=== PATIENT | female | born 1980 | race Two or more races ===

== ENCOUNTER 2024-05-14 14:48 | Emergency (ER) | payer BC, SELFPAY ==
[2024-05-14 14:50] VITALS: BMI 33.5
[2024-05-14 14:56] VITALS: BP 155/99; PULSE 107; RESP 18; TEMP 36.8; O2SAT 97
--- NOTE | 2024-05-14 14:57 | PC.NURSE ---
Stroke alert called in triage for left facial droop, no other deficits, Dr. Marlow in od triage, assesed patient and cancelled stroke alert.
--- NOTE | 2024-05-14 15:05 | EDNOTE_ITS ---
ED General RME/HPI General Chief complaint: Neuro Symptoms/Deficit Stated complaint: LEFT FACIAL PARALYSIS, UNABLE TO BLINK LEFT EYE Time Seen by Provider: 05/14/24 15:03 Arrival date/time: 05/14/24 14:48 RME / HPI RME / HPI narrative: 43-year-old female 12 hours of left facial droop, inability to close her eyes completely, dry eyes, and facial tingling. She denies recent trauma or headache. She denies slurred speech or difficulty swallowing. She denies weakness or deficits in her arms and legs. She does note that the joints of her jaws underneath her ears frequently pop out . Related Data Previous Rx's ?Medication ?Instructions ?Recorded prednisone 50 mg tablet 50 mg PO QDAY 7 days #7 tabs 05/14/24 valacyclovir 500 mg tablet 1,000 mg (2 x 500 mg) PO TID 1 05/14/24 week #42 tabs Allergies Allergy/AdvReac Type Severity Reaction Status Date / Time NKA* Allergy Uncoded 05/14/24 14:51 Review of Systems Review of Systems Systems Reviewed: All systems reviewed, normal except as documented ED Exam Narrative Physical exam: GENERAL APPEARANCE: AxOx4, generally well-appearing, no acute distress. HEENT: NC, AT. MMM. EOMI, clear conjunctiva, oropharynx clear, no TMJ tenderness bilaterally NECK: Supple without lymphadenopathy. No stiffness or restricted ROM. HEART: Normal rate and regular rhythm, normal S1/S1, no m/r/g LUNGS: CTAB, moving air well. No crackles or wheezes are heard. ABDOMEN: Soft, nontender, nondistended with good bowel sounds heard. BACK: No midline C/T/L spine pain or deformity, No CVAT, no obvious deformity. EXTREMITIES: Without cyanosis, clubbing or edema. MUSCULOSKELETAL: FROM of all major joints, no chest tenderness NEUROLOGICAL: Grossly nonfocal. Alert and oriented, moving all 4 extremities. Left facial nerve weakness involving the forehead. Positive Saleh's phenomena on the left. Remainder of cranial nerves are intact. not formally tested but appear grossly intact. Observed to ambulate with normal gait. Skin: Warm and dry without any rash. Course Quality Measures none Vital Signs Vital signs: Vital Signs Temperature 98.3 F 05/14/24 14:56 Pulse Rate 107 H 05/14/24 14:56 Respiratory Rate 18 05/14/24 14:56 Blood Pressure 155/99 H 05/14/24 14:56 Pulse Oximetry (%) 97 05/14/24 14:56 Oxygen Delivery Method Room Air 05/14/24 14:56 SpO2 97% on room air, patient is not hypoxic MDM Patient data External records reviewed:: [facility] previous records Clinical information provided by:: patient Social determinants that could affect healthcare access:: none Patient has the following chronic illnesses:: None How is presenting disease/condition affected by chronic disease/condition?: no chronic disease Evaluation data The following diagnostics were reviewed and interpreted by me:: other (specify) (Not indicated) Lab and/or radiology exams considered but not ordered:: Not indicated Interpretation Summary: Not indicated Medications Medications considered but not ordered:: None Medication administrations:: None Consultations Consultation(s) initiated? (list below): No Diagnosis Differential Diagnosis ED Complaint MDM: Saleh's palsy, CVA, TIA, TMJ-itis Most likely diagnosis given after review of the tests above:: See below Admission Indicated Admission indicated?: not indicated Explain why admission is indicated or not indicated:: As per narrative Admission Request Was there a request for admission?: No Disposition Plan Disposition Plan: Discharge Discharge Attestation Discharge Attestation: The patient and all family members were given an opportunity to ask questions and understood the discharge instructions. Discharge instructions specifically effects, indications for sooner follow up or return to the emergency department, and the expected course of current diagnosis. Patient condition: Stable Medical Decision Making MDM Narrative MDM Narrative: Ms. Grady presents to the emergency department with left facial droop, positive Saleh's phenomena, consistent with a peripheral neuropathy. She is otherwise neurologically intact. She is within 48 hours of onset of symptoms therefore is appropriate for treatment with steroids, antivirals. I have also given her some supportive management for TMJ pain or any inflammation second also complicate the situation. Although she does not have distinct TMJ pain or crepitus on exam. Differential Diagnosis Differential Diagnosis: Saleh's palsy, CVA, TIA, TMJ-itis Discharge Plan Plan Patient Disposition: HOME (Self Care) Prescriptions/Referrals Prescriptions/Med Rec: New prednisone 50 mg tablet 50 mg PO QDAY 7 Days Qty: 7 0RF valacyclovir 500 mg tablet 1,000 mg PO TID 7 Days Qty: 42 0RF Problem List Clinical Impression: Saleh's palsy Patient/Caregiver Discharge Instructions Education Materials: ED Saleh's Palsy Additional Instructions: Follow-up with your primary care doctor in 7 to 10 days for recheck. You can return to the emergency department sooner symptoms worsen or if you notice any new, concerning issues. Print Language: Yi Stand Alone Forms: Michaelle Award Info., Patient Portal Info Letter
== END 2024-05-14 15:39 | disposition home or self-care (01) ==
LOC: SERX 15:24
PROVIDERS: Emergency Provider Emergency Medicine; PCP Family Medicine
DX: G51.0 Bell's palsy (principal)
CPT/HCPCS: 99281